=== PATIENT | male | born 1970 | race Caucasian/White ===

== ENCOUNTER → 2023-12-28 07:40 | Outpatient (REF) | payer OTHER, SELFPAY | LOC: DHCBC/DCA 07:40 | PROVIDERS: ATTENDING PHYSICIAN Internal Medicine; FAMILY PHYSICIAN Family Medicine | DX: R07.9 Chest pain, unspecified (principal); I10 Essential (primary) hypertension | CPT/HCPCS: 78452; 93017; A9500 ==

== ENCOUNTER → 2024-01-21 12:54 | Outpatient (REF) | payer OTHER, SELFPAY | LOC: RCS 12:54 | PROVIDERS: ATTENDING PHYSICIAN Internal Medicine; FAMILY PHYSICIAN Family Medicine | DX: R07.9 Chest pain, unspecified (principal); I10 Essential (primary) hypertension | CPT/HCPCS: 93307; Q9957 ==